=== PATIENT | male | born 1985 | race Two or more races ===

== ENCOUNTER 2025-06-10 19:14 | Emergency (ER) | payer SELFPAY ==
[~2025-06-10] VITALS: Ht 165.1 cm; Wt 72.5 kg
[2025-06-10 19:39] VITALS: BP 151/99; PULSE 112; RESP 16; TEMP 99.1; O2SAT 99
[2025-06-10 19:53] LABS: PLATELET COUNT (AUTO) 265 K/uL (150-450); RED BLOOD CELL COUNT(AUTO) 4.82 MIL/uL (4.50-5.90); RED CELL DISTRIBUTION WIDTH 12.9 % (11.5-14.5); WHITE BLOOD COUNT (AUTO) 6.6 K/uL (4.5-11.0)
[2025-06-10 20:03] LABS: CALCIUM, TOTAL 8.3 mg/dL (8.8-10.5); CREATININE 0.90 mg/dL (0.60-1.30); GLOMERULAR FILTR. RATE CALC > 60 mL/min (>60); GLUCOSE,RANDOM 139 mg/dL (70-110); SODIUM SERUM 137 mmol/L (136-145); UREA NITROGEN, BLOOD 10 mg/dL (7-18)
[2025-06-10] MEDS: POTASSIUM CHLORIDE 20 MEQ ER TABLET PO ONE (20:35)
== END 2025-06-10 23:49 | disposition home or self-care (01) ==
LOC: EMS 19:40
DX: F10.129 Alcohol abuse with intoxication, unspecified (principal); Y90.8 Blood alcohol level of 240 mg/100 ml or more
CPT/HCPCS: 99283; 80048; 85025; 36415; G0480